=== PATIENT | female | born 1970 | race Caucasian/White ===

== ENCOUNTER 2020-09-08 13:49 | Emergency (ER) | payer OTHER, SELFPAY ==
[2020-09-08] VITALS (8 sets, daily range): BP systolic 114–173; BP diastolic 54–86; PULSE 73–103; RESP 16; TEMP 36.6; O2SAT 96–99; BMI 39.6
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
[2020-09-08 16:00] LABS: UR Morphine/Opiate cutoff 300 Negative (Negative); Ur Creatinine Normal (Normal); Ur Specific Gravity Normal (Normal); Urine Amphetamines Negative (Negative); Urine Barbiturates Negative (Negative); Urine Benzodiazepines Negative (Negative); Urine Cocaine Negative (Negative); Urine MDMA Negative (Negative); Urine Methadone Negative (Negative); Urine Methamphetamines Negative (Negative); Urine Oxycodone Negative (Negative); Urine Phencyclidine Negative (Negative); Urine Tetrahydrocannabinol Negative (Negative); Urine Tricyclic Antidepressant Negative (Negative); Urine pH Normal (Normal)
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
--- NOTE | 2020-09-08 17:29 | PC.NURSE ---
I couldn't remember if I had discontinued the patients IV ( #[id number] in right upper arm). Graphic Design Manager stated Pt had just walked out the front door and turned left. I walked out to [place] looking for patient, but did not see her. I informed Dr Magaña and charge nurse Adrian Olivarez of the possibility that patient had left with IV in place. I then called the patient's phone and had her drive her to the ER entrance. Pt denied having an IV in place, but pulled her sleeve down. I saw the IV still in place, I pulled it out and applied sterile guaze. Pt tolerated.
[2020-09-08 19:52] LABS: RBC Urine None Seen (0-5/HPF)
[2020-09-08 19:53] LABS: Appearance Urine UA CLEAR; Bilirubin Urine UA NEGATIVE (NEGATIVE); Color Urine UA YELLOW; Glucose Urine UA NEGATIVE (Negative); Ketones Urine UA NEGATIVE (NEGATIVE); Leukocyte Esterase Urine UA NEGATIVE (NEGATIVE); Nitrite Urine UA NEGATIVE (Negative); Occult Blood Urine UA NEGATIVE (Negative); Protein Urine UA NEGATIVE (Negative); Specific Gravity Urine UA <=1.005 (1.000-1.035); Urobilinogen Urine UA 0.2 E.U./dL (0.2)
[2020-09-08 19:59] LABS: Amorphous Sediment Urine 1+; Bacteria Urine Few (2-10); Culture Indicated Urine Specimen Cultured; Squamous Epithelial Cell Urine 1-5 /HPF (0-5/HPF); WBC Urine 1-5/HPF (0-5/HPF)
== END 2020-09-08 17:00 | disposition home or self-care (01) ==
PROVIDERS: Emergency Provider Emergency Medicine
DX: R41.82 Altered mental status, unspecified (principal); R51.9 Headache, unspecified; R10.9 Unspecified abdominal pain; M54.9 Dorsalgia, unspecified; S00.511A Abrasion of lip, initial encounter; V49.9XXA Car occupant (driver) (passenger) injured in unspecified traffic accident, initial encounter
CPT/HCPCS: 70450; 71260; 72125; 74177; 80305; 81001; 87077; 87086; 87186; 93005; 99283; 99284; Q9967